=== PATIENT | male | born 1980 | race Caucasian/White ===

== ENCOUNTER 2021-06-05 14:19 | Emergency (ER) | payer OTHER ==
[~2021-06-05] VITALS: Ht 180.3 cm; Wt 93.0 kg
[2021-06-05 15:15] LABS: URINE BILIRUBIN NEGATIVE (Negative); URINE BLOOD NEGATIVE (Negative); URINE CLARITY CLEAR; URINE COLOR YELLOW; URINE GLUCOSE-RANDOM NEGATIVE (Negative); URINE KETONES NEGATIVE (Negative); URINE LEUKOCYTES NEGATIVE (Negative); URINE NITRITE NEGATIVE (Negative); URINE PROTEIN NEGATIVE (Negative)
[2021-06-05 16:29] VITALS: BP 138/87
== END 2021-06-05 16:30 | disposition home or self-care (01) ==
LOC: M.ERS 14:19
PROVIDERS: Physician Assistant
DX: N43.3 Hydrocele, unspecified (principal); Z90.89 Acquired absence of other organs